=== PATIENT | male | born 1950 | race Caucasian/White ===

== ENCOUNTER 2018-03-25 10:29 | Day surgery (SDC) | payer BC ==
[~2018-03-25] VITALS: Ht 188 cm; Wt 74.7 kg
[2018-03-25 11:11] VITALS: BP 123/80; PULSE 62; TEMP 98.3
[2018-03-25] MEDS ORDERED: AVODART 0.5MG0.5 MG PO (11:16)
[2018-03-25] MEDS ORDERED: TAMBOCOR 1100 MG/TAB PO (11:17)
[2018-03-25] MEDS ORDERED: ASPIRIN 32325 MG/TAB PO (11:17)
[2018-03-25] MEDS ORDERED: NORCO 325 MG-51 TAB PO (15:11)
[2018-03-25] MEDS ORDERED: COLACE 100100 MG/CAP PO (15:12)
[2018-03-25] MEDS ORDERED: MOTRIN 600600 MG/TAB PO (15:12)
[2018-03-25 16:05] VITALS: BP 120/75; PULSE 57; TEMP 96.9
[2018-03-25 16:20] VITALS: BP 119/73; PULSE 53
[2018-03-25 16:35] VITALS: BP 122/71; PULSE 60
[2018-03-25 16:48] VITALS: BP 122/81; PULSE 59
[2018-03-25 17:15] VITALS: BP 126/71; PULSE 59
== END 2018-03-25 18:33 | disposition home or self-care (01) ==
LOC: SDCO 10:29
DX: K40.90 Unilateral inguinal hernia, without obstruction or gangrene, not specified as recurrent (principal); I47.1 Supraventricular tachycardia; Z79.899 Other long term (current) drug therapy; G89.29 Other chronic pain; M54.2 Cervicalgia; N40.0 Benign prostatic hyperplasia without lower urinary tract symptoms; G61.81 Chronic inflammatory demyelinating polyneuritis; Z80.0 Family history of malignant neoplasm of digestive organs; Z80.2 Family history of malignant neoplasm of other respiratory and intrathoracic organs
CPT/HCPCS: A4314; C1781; J2704; J3010; J7120